=== PATIENT | male | born 1965 | race Caucasian/White ===

== ENCOUNTER 2019-08-12 13:01 | Emergency (ER) | payer BC, SELFPAY ==
[2019-08-12] MEDS ORDERED: Ketorolac Tromethamine 30 MG/ML VIAL ONE (13:27)
--- NOTE | 2019-08-12 13:45 | RAD ---
EXAM: 3 views of the left shoulder HISTORY: Shoulder pain after fall COMPARISON: None FINDINGS: There is a fracture of the distal aspect of the clavicle. No separation of the acromioclavi cular joint is seen. No humeral fracture is seen. No dislocation is present. No degenerative changes are present. No soft tissue swelling is seen. The visualized thorax is unremarkable. IMPRESSION: Left distal clavicle fracture
== END 2019-08-12 15:12 | disposition home or self-care (01) ==
LOC: ERS 13:01
DX: R55 Syncope and collapse (principal); S42.032A Displaced fracture of lateral end of left clavicle, initial encounter for closed fracture; F17.210 Nicotine dependence, cigarettes, uncomplicated; I10 Essential (primary) hypertension; W18.30XA Fall on same level, unspecified, initial encounter
CPT/HCPCS: 36415; 84484; 93005; 96372; J1885